=== PATIENT | female | born 1955 | race Caucasian/White ===

== ENCOUNTER → 2020-04-06 | Outpatient (CLI) | payer BC ==
[~2020-04-06] MED LIST: CHANTIX1 MG PO; CYMBALTA60 MG PO; LIORESAL TAB 1010 MG PO; LUVOX TAB 100100 MG PO; ZOMIG5 MG PO
== END ==
LOC: MAMO 02-28 10:30 → EXRD 02-28 11:00 → MAMO 10:00
DX: Z12.31 Encounter for screening mammogram for malignant neoplasm of breast (principal); Z78.0 Asymptomatic menopausal state; M81.0 Age-related osteoporosis without current pathological fracture; M85.852 Other specified disorders of bone density and structure, left thigh
CPT/HCPCS: 77063; 77067; 77080

== ENCOUNTER → 2020-08-16 | Outpatient (CLI) | payer BC ==
[~2020-08-16] MED LIST changes: +ALBUTEROL2.5 MG/3 M INH; +IBUPROFEN200 M1 PO; +LASIX TAB 20 MG20 MG PO; +POTASSIUM CHLO10 MEQ PO; +ULTRAM50 MG PO; +ZOLMITRIPTAN5 MG PO
== END ==
LOC: KOH-I 08-15 09:45
DX: M51.34 Other intervertebral disc degeneration, thoracic region (principal)
CPT/HCPCS: 72146

== ENCOUNTER → 2020-09-04 | Outpatient (CLI) | payer BC | LOC: KOH-I 09:29 | DX: R05 Cough (principal); R91.8 Other nonspecific abnormal finding of lung field | CPT/HCPCS: 71046 ==

== ENCOUNTER → 2020-09-08 | Outpatient (CLI) | payer BC | LOC: US 10:08 → CT 11:30 | DX: R91.1 Solitary pulmonary nodule (principal); R93.421 Abnormal radiologic findings on diagnostic imaging of right kidney | CPT/HCPCS: 71260; Q9967 ==

== ENCOUNTER → 2020-09-19 | Outpatient (CLI) | payer BC ==
[~2020-09-19] MED LIST changes: +HYDROCODON-ACE1 EAC2 PO; +PERCOCET 5-3251 EACH PO
== END ==
LOC: CT 09:56
DX: N28.89 Other specified disorders of kidney and ureter (principal); I51.7 Cardiomegaly
CPT/HCPCS: Q9967

== ENCOUNTER → 2020-10-13 | Day surgery (SDC) | payer BC | END | disposition home or self-care (01) | LOC: OR 06:27 | DX: C34.11 Malignant neoplasm of upper lobe, right bronchus or lung (principal); J90 Pleural effusion, not elsewhere classified; G89.29 Other chronic pain; Z87.891 Personal history of nicotine dependence; Z79.1 Long term (current) use of non-steroidal anti-inflammatories (NSAID); Z79.899 Other long term (current) drug therapy | CPT/HCPCS: J1100; J2250; J2405; J2704; J3010; J7120 ==

== ENCOUNTER → 2020-10-17 | Outpatient (CLI) | payer BC | LOC: OPSV 06:40 | DX: J90 Pleural effusion, not elsewhere classified (principal); R91.8 Other nonspecific abnormal finding of lung field; R10.9 Unspecified abdominal pain; J30.9 Allergic rhinitis, unspecified; R31.29 Other microscopic hematuria | CPT/HCPCS: 71046; C1729 ==

== ENCOUNTER → 2020-10-26 | Day surgery (SDC) | payer BC | END | disposition home or self-care (01) | LOC: OR 08:59 | DX: C34.11 Malignant neoplasm of upper lobe, right bronchus or lung (principal); C79.2 Secondary malignant neoplasm of skin; R07.89 Other chest pain; R31.29 Other microscopic hematuria; Z90.49 Acquired absence of other specified parts of digestive tract; Z87.891 Personal history of nicotine dependence; Z20.822 Contact with and (suspected) exposure to COVID-19 | CPT/HCPCS: 77001; C1769; C1788; J0690; J1642; J2250; J2370; J2405; J2704; J3010; J7030; J7040; J7120 ==

== ENCOUNTER → 2020-10-27 | Outpatient (CLI) | payer BC | LOC: MRI 08:30 | DX: C34.11 Malignant neoplasm of upper lobe, right bronchus or lung (principal) | CPT/HCPCS: 70553; A9577 ==

== ENCOUNTER → 2020-11-13 | Outpatient (CLI) | payer BC | LOC: US 12:33 | DX: J90 Pleural effusion, not elsewhere classified (principal); C34.11 Malignant neoplasm of upper lobe, right bronchus or lung | CPT/HCPCS: 71045; G0463 ==

== ENCOUNTER → 2020-11-14 | Outpatient (CLI) | payer BC | LOC: NM 08:57 | DX: C34.11 Malignant neoplasm of upper lobe, right bronchus or lung (principal) | CPT/HCPCS: 78306; A9503 ==

== ENCOUNTER → 2021-03-19 | Outpatient (CLI) | payer BC | LOC: NM 08:10 | DX: C34.11 Malignant neoplasm of upper lobe, right bronchus or lung (principal) | CPT/HCPCS: 78306; A9503 ==

== ENCOUNTER → 2021-03-26 | Outpatient (CLI) | payer BC | LOC: CT 08:06 | DX: C34.11 Malignant neoplasm of upper lobe, right bronchus or lung (principal); J90 Pleural effusion, not elsewhere classified; N28.9 Disorder of kidney and ureter, unspecified | CPT/HCPCS: 71260; Q9967 ==

== ENCOUNTER → 2021-06-26 | Outpatient (CLI) | payer BC | LOC: NM 08:50 | DX: C34.11 Malignant neoplasm of upper lobe, right bronchus or lung (principal) | CPT/HCPCS: 78306; A9503 ==

== ENCOUNTER → 2021-08-28 | Outpatient (CLI) | payer OTHER | LOC: NM 08:30 | DX: C34.11 Malignant neoplasm of upper lobe, right bronchus or lung (principal) | CPT/HCPCS: 78306; A9503 ==

== ENCOUNTER → 2021-08-30 | Outpatient (CLI) | payer OTHER | LOC: CT 08:22 | DX: C34.11 Malignant neoplasm of upper lobe, right bronchus or lung (principal); C79.51 Secondary malignant neoplasm of bone; R59.0 Localized enlarged lymph nodes; R91.8 Other nonspecific abnormal finding of lung field | CPT/HCPCS: 71260; Q9967 ==

== ENCOUNTER → 2021-11-22 | Outpatient (CLI) | payer OTHER | LOC: CT 09:00 | DX: C34.11 Malignant neoplasm of upper lobe, right bronchus or lung (principal); C79.51 Secondary malignant neoplasm of bone; K59.00 Constipation, unspecified; M89.9 Disorder of bone, unspecified; J90 Pleural effusion, not elsewhere classified; Z79.899 Other long term (current) drug therapy | CPT/HCPCS: 71260; Q9967 ==

== ENCOUNTER → 2021-12-03 | Outpatient (CLI) | payer OTHER | LOC: NM 07:55 | DX: C34.11 Malignant neoplasm of upper lobe, right bronchus or lung (principal); C79.51 Secondary malignant neoplasm of bone; Z79.899 Other long term (current) drug therapy | CPT/HCPCS: 78306; A9503 ==